=== PATIENT | female | born 1995 | race Caucasian/White ===

== ENCOUNTER 2018-12-02 20:27 | Emergency (ER) | payer MEDICAID ==
[2018-12-02] MEDS ORDERED: ACETAMINOPHEN 325 MG TABLET PO ONE (20:41)
--- NOTE | 2018-12-02 20:44 | ER Document Report ---
ED Medical Screen (RME) - General Chief Complaint: Fever Stated Complaint: FEVER Time Seen by Provider: 12/02/18 20:41 Primary Care Provider: SALOME BOYCE MD [Primary Care Provider] - Follow up as needed Mode of Arrival: Ambulatory Information source: Patient Notes: 23-year-old female presents to ED for complaint of history of peritonsillar abscess x2 several years ago. She states that she has been sick for about a 2 weeks. She states she is ran a fever off and on between 90 and 100.3. She states that today her temperature was 104.2 and she took some ibuprofen about 5 PM 800 mg. She states she is went to her primary doctor and they did a strep test which was negative and she was diagnosed with a viral illness. She states that her throat feels the same as it did when she had a peritonsillar abscess. She is alert oriented speaking in clear full sentences with signs and symptoms of upper respiratory infection. A strep test was sent. She was treated with Tylenol. I have greeted and performed a rapid initial assessment of this patient. A comprehensive ED assessment and evaluation of the patient, analysis of test results and completion of medical decision making process will be conducted by an additional ED providers. Dictation of this chart was performed using voice recognition software; therefore, there may be some unintended grammatical errors. TRAVEL OUTSIDE OF THE [place] IN LAST 30 DAYS: No - Related Data Allergies/Adverse Reactions: No Known Allergies Allergy (Verified 12/02/18 20:39) Past Medical History - Social History Frequency of alcohol use: Social Drug Abuse: None Renal/ Medical History: Denies: Hx Peritoneal Dialysis Past Surgical History: Reports: Hx Section - April 2015 Physical Exam - Vital signs Vitals: Temp Pulse Resp BP Pulse Ox 99.7 F 86 16 107/67 99 12/02/18 20:32 12/02/18 20:32 12/02/18 20:32 12/02/18 20:32 12/02/18 20:32 Course - Vital Signs Vital signs: Temp Pulse Resp BP Pulse Ox 99.7 F 86 16 107/67 99 12/02/18 20:32 12/02/18 20:32 12/02/18 20:32 12/02/18 20:32 12/02/18 20:32 Doctor's Discharge - Discharge Referrals: SALOME BOYCE MD [Primary Care Provider] - Follow up as needed
--- NOTE | 2018-12-02 23:14 | ER Document Report ---
HPI - HPI Time Seen by Provider: 12/02/18 20:41 Pain Level: 5 Context: Patient is a 23-year-old female presents to the emergency department with a chief complaint of a sore throat. She states that she has had her symptoms for the past 2 to 3 weeks. Her son had these symptoms before. Patient has history of peritonsillar abscesses in which she was treated with Augmentin. She has not taken any Augmentin in the past few months. Patient was also seen by urgent care and was told that she had an upper respiratory viral infection. - CONSTITUTIONAL Constitutional: REPORTS: Fever - EENT EENT: REPORTS: Sore Throat. DENIES: Ear Pain, Nasal Drainage-Clear, Nasal Drainage-Purulent, Congestion, Eye problems - NEURO Neurology: DENIES: Headache - CARDIOVASCULAR Cardiovascular: DENIES: Chest pain - RESPIRATORY Respiratory: DENIES: Trouble Breathing, Coughing - GASTROINTESTINAL Gastrointestinal: DENIES: Abdominal Pain - REPRODUCTIVE Reproductive: DENIES: : - MUSCULOSKELETAL Musculoskeletal: DENIES: Extremity pain - DERM Skin Color: Normal Skin Problems: None Past Medical History - General Information source: Patient - Social History Smoking Status: Never Smoker Frequency of alcohol use: Social Drug Abuse: None Family History: Reviewed & Not Pertinent Patient has suicidal ideation: No Patient has homicidal ideation: No Renal/ Medical History: Denies: Hx Peritoneal Dialysis Past Surgical History: Reports: Hx Section - April 2015 Vertical Provider Document - CONSTITUTIONAL Agree With Documented VS: Yes Exam Limitations: Physical Impairment General Appearance: No Apparent Distress - INFECTION CONTROL TRAVEL OUTSIDE OF THE [place] IN LAST 30 DAYS: No - HEENT HEENT: Atraumatic, Normocephalic, PERRLA, Pharyngeal Exudate, Pharyngeal Tenderness, Pharyngeal Erythema. negative: Tympanic Membrane Red, Tympanic Membrane Bulging - NECK Neck: Normal Inspection, Supple - RESPIRATORY Respiratory: Breath Sounds Normal, No Respiratory Distress - CARDIOVASCULAR Cardiovascular: Regular Rate, Regular Rhythm Pulses: Normal: Radial - MUSCULOSKELETAL/EXTREMETIES Musculoskeletal/Extremeties: FROM - NEURO Level of Consciousness: Awake, Alert, Appropriate Motor/Sensory: No Motor Deficit, No Sensory Deficit - DERM Integumentary: Warm, Dry Course - Re-evaluation Re-evalutation: 12/02/18 Patient's rapid strep is negative at this time. Her Monospot is negative. She will be given Augmentin, as she does have some exudate and right tonsillar hypertrophy. She will be started on Augmentin, as this has helped with possible peritonsillar abscesses in the past. Patient's uvula is midline at this time. No airway compromise noted. She will follow-up with her primary care provider in regards to this visit. Ibuprofen and Tylenol for pain relief. Verbal discharge instructions were given to the patient. They verbalized understanding. They are stable for discharge. - Vital Signs Vital signs: Temp Pulse Resp BP Pulse Ox 99.7 F 86 16 107/67 99 12/02/18 20:32 12/02/18 20:32 12/02/18 20:32 12/02/18 20:32 12/02/18 20:32 Discharge - Discharge Clinical Impression: Exudative pharyngitis, Sore throat Condition: Stable Disposition: HOME, SELF-CARE Additional Instructions: You were seen today in the emergency department for a sore throat. You do have some swelling noted to your right tonsil. You are being started on Augmentin. Please finish all your antibiotics as prescribed, even if you feel better, finish her medication. Please follow-up with the ear nose and throat doctor, as you have this recurring problem. Please continue to take ibuprofen 600 mg and Tylenol 1000 mg every 6 hours for your pain and fever. Prescriptions: Amox Tr/Potassium Clavulanate [Augmentin 875-125 Tablet] 1 tab PO BID 10 Days #20 tablet Referrals: SALOME BOYCE MD [ACTIVE STAFF] - Follow up as needed AUDELIA MYRICK DO [ASSOCIATE] - Follow up in 1 week
[2018-12-02] MEDS ORDERED: AMOXICILLIN TR/POT CLAVULANATE 500-125 MG TAB PO ONE (23:18)
[2018-12-02 23:26] VITALS: BP 111/69
== END 2018-12-02 23:25 | disposition home or self-care (01) ==
LOC: ER 20:27
DX: J02.9 Acute pharyngitis, unspecified (principal); J35.1 Hypertrophy of tonsils; R50.9 Fever, unspecified
CPT/HCPCS: 99283; 36415; 87070; 87880; 86308; J3490 ×2

== ENCOUNTER 2018-12-24 13:39 | Emergency (ER) | payer MEDICAID ==
[2018-12-24 14:17] VITALS: BP 102/58
[2018-12-24] MEDS ORDERED: DEXAMETHASONE SOD PHOS INJ 10 MG/1 ML VIAL IM ONE (14:54)
--- NOTE | 2018-12-24 14:58 | ER Document Report ---
HPI - HPI Time Seen by Provider: 12/24/18 14:51 Pain Level: 3 Notes: Patient is a 23-year-old female with history of recurrent peritonsillar abscess who presents complaining of sore throat with the right slightly worse than the left side over the past several days. Patient states that she was placed on antibiotics to help prevent it and she was doing well on them. Patient states that when the antibiotics that she started having more pain and swelling. Patient states that she is primarily here to get antibiotics. She does have an ENT that she is going to be following up with. Denies drug allergies. She is able to eat and drink without difficulty. She is urinating normally. Denies any headache, fever, neck pain, drooling, hoarseness, URI, chest pain, palpitations, syncope, cough, shortness of breath, wheeze, dyspnea, abdominal pain, nausea/vomiting/diarrhea, urinary retention, dysuria, hematuria, or rash. - ROS Systems Reviewed and Negative: Yes All other systems reviewed and negative - REPRODUCTIVE Reproductive: DENIES: : - DERM Skin Color: Normal, [place] Past Medical History - Social History Smoking Status: Former Smoker Frequency of alcohol use: Social Drug Abuse: None Family History: Reviewed & Not Pertinent Patient has suicidal ideation: No Patient has homicidal ideation: No Renal/ Medical History: Denies: Hx Peritoneal Dialysis Past Surgical History: Reports: Hx Section - April 2015 Vertical Provider Document - CONSTITUTIONAL Agree With Documented VS: Yes Notes: PHYSICAL EXAMINATION: GENERAL: Well-appearing, well-nourished and in no acute distress. A&Ox4. An swers questions appropriately. Moves comfortably w/o notable distress HEAD: Atraumatic, normocephalic. EYES: Pupils equal round and reactive to light, extraocular movements intact, sclera anicteric, conjunctiva are normal. ENT: EAC clear b/l. TM's intact b/l without erythema, fluid, or perforation. Nares patent and with clear discharge. oropharynx mild erythema without exudates. 2+ tonsilar hypertrophy with mild erythema no exudate. No palatine shift. Uvula midline. No tongue protrusion. No drooling, hoarseness, or airway compromise. Moist mucous membranes. No sinus tenderness. NECK: Normal range of motion, supple without lymphadenopathy. No rigidity/meningismus. LUNGS: Breath sounds clear to auscultation bilaterally and equal. No wheezes rales or rhonchi. No retractions HEART: Regular rate and rhythm without murmurs, rubs, gallops. NEUROLOGICAL: Normal speech, normal gait. PSYCH: Normal mood, normal affect. SKIN: Warm, Dry, normal turgor, no rashes or lesions noted. - INFECTION CONTROL TRAVEL OUTSIDE OF THE [place] IN LAST 30 DAYS: No Course - Re-evaluation Re-evalutation: 12/24/18 14:56 Patient is an afebrile, well-hydrated, 23-year-old female who presents with acute pharyngitis/tonsillitis. Vitals are acceptable without significant tachycardia, tachypnea, or hypoxia. PE is otherwise unremarkable. Patient has a strong history of peritonsillar abscess. No work-up will be performed today as she has a midline uvula and no palatine shift without any hoarseness or drooling. There is no evidence of abscess at this time exam. I will treat her with amoxicillin as precautionary because of her history and current erythema on exam. Decadron given IM. Low suspicion for any meningitis, sepsis, peritonsillar/pharyngeal abscess, respiratory compromise, Waylon's, or other emergent systemic condition at this time. Patient is aware this condition can change from initial presentation and she needs to monitor symptoms closely. Conservative measures otherwise for symptoms. Recheck with your PCM in 2-3 days. Schedule appointment with ENT for follow-up. Return to the ED with any worsening/concerning symptoms otherwise as reviewed in discharge. Patient is in agreement. - Vital Signs Vital signs: Temp Pulse Resp BP Pulse Ox 98.9 F 77 18 102/58 L 100 12/24/18 14:15 12/24/18 14:15 12/24/18 14:15 12/24/18 14:15 12/24/18 14:15 Discharge - Discharge Clinical Impression: Sore throat, Tonsillitis Condition: Stable Disposition: HOME, SELF-CARE Instructions: Tonsillitis ([facility]) Additional Instructions: Maintain adequate fluid intake Take meds as directed Salt water gargles, throat sprays, mouthwash rinse, peroxide gargles tylenol/ibuprofen as needed New toothbrush tomorrow evening over the counter cold medication as needed for symptoms F/u: with your PCM in 2-3 days for a recheck Schedule an appointment with ENT for follow-up Return to the ED with any fever, worsening pain, chest pain, neck pain/stiffness, shortness of breath, cough, drooling, trouble swallowing/breathing, abdominal pain, n/v/d, rash, or worsening/concerning symptoms otherwise. Prescriptions: Amoxicillin Trihydrate [Amoxil 875 mg Tablet] 1 tab PO BID #20 tablet Referrals: AUDELIA MYRICK DO [ASSOCIATE] - Follow up in 3-5 days
== END 2018-12-24 15:00 | disposition home or self-care (01) ==
LOC: ER 13:39
DX: J03.90 Acute tonsillitis, unspecified (principal); R09.89 Other specified symptoms and signs involving the circulatory and respiratory systems; Z87.891 Personal history of nicotine dependence
CPT/HCPCS: 99282; 96372; J1100

== ENCOUNTER 2019-01-30 09:50 | Emergency (ER) | payer MEDICAID ==
[2019-01-30 10:00] VITALS: BP 101/61
--- NOTE | 2019-01-30 11:02 | ER Document Report ---
HPI - HPI Patient complains to provider of: lymph node Time Seen by Provider: 01/30/19 10:35 Onset: This morning Onset/Duration: Gradual Quality of pain: Achy Pain Level: 5 Context: Patient presents complaining of skin lesion to scalp for 2 weeks. Patient noticed tender enlarged lymph nodes behind bilateral ears this morning. Patient denies any fever. Associated Symptoms: Other - Tender lymph nodes, scalp lesion. denies: Fever Exacerbated by: Denies Relieved by: Denies Similar symptoms previously: No Recently seen / treated by doctor: No - ROS ROS below otherwise negative: Yes Systems Reviewed and Negative: Yes All other systems reviewed and negative - EENT EENT: DENIES: Sore Throat, Ear Pain - GASTROINTESTINAL Gastrointestinal: DENIES: Nausea - REPRODUCTIVE Reproductive: DENIES: : - MUSCULOSKELETAL Musculoskeletal: REPORTS: Neck Pain - Lymph nodes - DERM Notes: Nonhealing wound to scalp Past Medical History - General Information source: Patient - Social History Smoking Status: Never Smoker Frequency of alcohol use: None Drug Abuse: None Occupation: Self-employed Family History: Reviewed & Not Pertinent Patient has suicidal ideation: No Patient has homicidal ideation: No Renal/ Medical History: Denies: Hx Peritoneal Dialysis Psychiatric Medical History: Reports: Hx Anxiety, Hx Depression Past Surgical History: Reports: Hx Section - April 2015 Vertical Provider Document - CONSTITUTIONAL Agree With Documented VS: Yes Exam Limitations: No Limitations General Appearance: WD/WN, No Apparent Distress - INFECTION CONTROL TRAVEL OUTSIDE OF THE [place] IN LAST 30 DAYS: No - HEENT HEENT: Atraumatic, Normal ENT Exam, Normocephalic Notes: No tenderness to ears bilaterally, normal external auditory canal - NECK Neck: Normal Inspection, Supple, Lymphadenopathy-Left, Lymphadenopathy-Right Notes: Patient with posterior chain cervical lymphadenopathy and postauricular cervical lymphadenopathy - RESPIRATORY Respiratory: Breath Sounds Normal, No Respiratory Distress - CARDIOVASCULAR Cardiovascular: Regular Rate, Regular Rhythm - BACK Back: Normal Inspection - MUSCULOSKELETAL/EXTREMETIES Musculoskeletal/Extremeties: MAEW - NEURO Level of Consciousness: Awake, Alert, Appropriate Motor/Sensory: No Motor Deficit - DERM Integumentary: Warm, Dry. negative: Rash, Abscess Notes: Patient with yellow crusting open wound to anterior scalp, no fluctuance Course - Re-evaluation Re-evalutation: 01/30/19 11:05 Patient with slow healing wound to scalp worrisome for impetigo. No concern for mastoiditis or malignant otitis at this time. Suspect reactive lymphadenopathy from scalp wound. - Vital Signs Vital signs: Temp Pulse Resp BP Pulse Ox 98.0 F 88 14 101/61 100 01/30/19 09:57 01/30/19 09:57 01/30/19 09:57 01/30/19 09:57 01/30/19 09:57 Discharge - Discharge Clinical Impression: Impetigo, Cervical lymphadenopathy Condition: Stable Disposition: HOME, SELF-CARE Instructions: Bactroban Ointment ([facility]), Cephalexin ([facility]), Impetigo ([facility]) Additional Instructions: Return immediately for any new or worsening symptoms Followup with your primary care provider, call tomorrow to make a followup appointment Prescriptions: Cephalexin Monohydrate [Keflex 500 mg Capsule] 500 mg PO Q6H 5 Days capsule Mupirocin [Bactroban 2% Ointment 22 gm] 1 applic TP TID #22 gm Ref[facility]: [facility] [Provider Group] - Follow up as needed
== END 2019-01-30 11:07 | disposition home or self-care (01) ==
LOC: ER 09:50
DX: L01.00 Impetigo, unspecified (principal); R59.0 Localized enlarged lymph nodes
CPT/HCPCS: 99282

== ENCOUNTER → 2019-02-01 | Outpatient (CLI) | payer MEDICAID ==
--- NOTE | 2019-02-01 12:39 | EKG REPORT ---
SEVERITY:- NORMAL ECG - SINUS RHYTHM : Confirmed by: Mitch Dialy MD 01-Feb-2019 12:38:22
== END ==
LOC: OD 11:41
PROVIDERS: ATTEND Nurse Practitioner Family
DX: R00.2 Palpitations (principal)
CPT/HCPCS: 93005; 93010

== ENCOUNTER 2019-02-26 10:31 | Day surgery (SDC) | payer MEDICAID ==
[2019-02-26] MEDS ORDERED: HYDROMORPHONE HCL INJ/PF 2 MG/ML AMPULE ONE (13:11)
[2019-02-26] MEDS ORDERED: MIDAZOLAM 2 MG/2 ML INJ ONE (13:11)
[2019-02-26] MEDS ORDERED: FENTANYL CITRATE INJ/PF 100 MCG/2 ML AMPUL ONE ×2 (13:11→14:32)
[2019-02-26] MEDS ORDERED: ONDANSETRON HCL INJ/PF 4 MG/2 ML SDV ONE (13:11)
[2019-02-26] MEDS ORDERED: SUCCINYLCHOLINE CHLORIDE INJ 200 MG/10 ML VIAL ONE (13:12)
[2019-02-26] MEDS ORDERED: DEXAMETHASONE SOD PHOS INJ 10 MG/1 ML VIAL ONE (13:12)
[2019-02-26] MEDS ORDERED: PROPOFOL INJ 200 MG/20 ML VIAL IV ONE (13:12)
[2019-02-26] MEDS ORDERED: BUPIVACAINE HCL 0.5%/EPI 1:200000 INJ 1.8 ML CARTRIDGE ONE (13:14)
[2019-02-26] MEDS: BUPIVACAINE HCL 0.5%/EPI 1:200000 INJ 1.8 ML CARTRIDGE ONE ×2 (13:55)
--- NOTE | 2019-03-14 23:30 | Operative Report ---
Operative Report-[facility] Operative Report: DATE OF OPERATION: February 26, 2019 PREOPERATIVE DIAGNOSIS: 1. Acute recurrent tonsillitis 2. Chronic tonsillitis 3. Tonsil stones POSTOPERATIVE DIAGNOSIS: 1. Acute recurrent tonsillitis 2. Chronic tonsillitis 3. Tonsil stones PROCEDURE: 1. Bilateral tonsillectomy patient age greater than 12 Primary Surgeon of Record: Dr. Fredy Lynn CLINICAL DATA COORDINATOR: None Anesthesia Staff: ELINA Hazel ANESTHESIA: General Endotracheal Tube Anesthesia DRAINS: None SPONGE COUNT: Verified Needle Count: N/A SPECIMEN/MATERIALS FORWARD TO THE LAB: 1. Left and Right Tonsillar Tissue ESTIMATED BLOOD LOSS: 5 EBL IV FLUIDS: 300 mL COMPLICATIONS: None Findings: 1. Tonsils were 2+ in size, were cryptic in appearance, and there was significant amounts of tonsillar debris present bilateral. 2. Soft palatal tissues were redundant in nature and the uvula was unremarkable in appearance. INDICATIONS: This is a 23-year-old female patient who was seen and evaluated in the [place] otolaryngology office. The patient had been referred for and she complained of a history of acute recurrent tonsillitis episodes each year requiring antibiotics which has gone on over the years. She variances significant sore throat discomfort, poor p.o. intake, and sleep difficulty during episodes. She is also with a history of chronic tonsillitis symptoms over the years with significant difficulty with tonsil stones, and history consistent with keratosis pharyngeus over the years. After extensive discussion with the patient the recommendation and plan was to proceed with a tonsillectomy. The procedure and all of the risks and complications were all discussed in detail with the patient. She voiced an understanding of the described surgical plan, were in agreement, and consent was obtained. DESCRIPTION OF OPERATIVE PROCEDURE: The patient was taken to the main operating room and was placed on the operating room table in the supine position. Appropriate monitors were placed. Using mask and IV access general anesthesia was induced. The patient was next transorally intubated without difficulty. The table was then rotated 90 and the patient was positioned and prepped for tonsilsurgery. The lips, teeth, tongue, and gums were inspected and noted to be without defect. The patient had a mouth gag inserted. It was opened and the patient was placed into suspension. There was a soft catheter passed through the nose that was used to suspend the soft palate. Findings are as noted above. At this point [place] with epinephrine was administered in the peritonsillar distribution to establish tonsil blocks. The plasma J-hook device was used to dissect and remove the tonsils from the tonsillar fossae without difficulty. This was also used to provide adequate hemostasis. Normal saline irrigation was performed and was suctioned. Adequate hemostasis was noted. The soft catheter was released and removed from the patients nose. The patient was next released from suspension and the mouth gag was closed. It was opened again and there was again no bleeding noted. It was then removed from the patient's mouth without difficulty. There was no damage to the lips, teeth, tongue, or gums noted. The patient was then returned to the anesthesia staff and was allowed to emerge from general anesthesia. The patient was extubated in the operating room and was transported to the post anesthesia recovery unit in stable condition. There were no complications.
== END 2019-02-26 15:27 | disposition home or self-care (01) ==
LOC: SC 10:31
PROVIDERS: ATTEND Otolaryngology
DX: J35.01 Chronic tonsillitis (principal); J03.91 Acute recurrent tonsillitis, unspecified; J35.8 Other chronic diseases of tonsils and adenoids
CPT/HCPCS: 88304 ×2; 00170; 42826; J2250; J3490; J3010; J1170; J0330; J2405; J2704; J1100; 170